=== PATIENT | female | born 1970 | race Caucasian/White ===

== ENCOUNTER 2019-03-03 17:53 | Emergency (ER) | payer MEDICAID, OTHER ==
[2019-03-03] MEDS: IPRATROPIUM (NEB) 0.5 MG/2.5 ML AMP HHN (23:46)
[2019-03-03] MEDS: ALBUTEROL 0.083% (NEB) 2.5 MG/3 ML AMP HHN (23:47)
== END 2019-03-04 00:27 | disposition home or self-care (01) ==
LOC: FTE 17:53
DX: J45.901 Unspecified asthma with (acute) exacerbation (principal); I10 Essential (primary) hypertension
CPT/HCPCS: 71046; 94664; 99284-25